=== PATIENT | male | born 1995 | race Caucasian/White ===

== ENCOUNTER 2018-01-06 08:22 | Emergency (ER) | payer OTHER ==
[2018-01-06] MEDS: IBUPROFEN 600 MG TAB PO (09:19)
== END 2018-01-06 09:52 | disposition home or self-care (01) ==
LOC: M ED 08:22
DX: S83.91XA Sprain of unspecified site of right knee, initial encounter (principal); X50.1XXA Overexertion from prolonged static or awkward postures, initial encounter; Y92.39 Other specified sports and athletic area as the place of occurrence of the external cause; Y93.9 Activity, unspecified; Y99.9 Unspecified external cause status
CPT/HCPCS: 73564

== ENCOUNTER 2018-07-04 11:59 | Emergency (ER) | payer OTHER ==
[~2018-07-04] VITALS: Ht 177.8 cm; Wt 100.0 kg
[~2018-07-04 11:59] MED LIST: IBUP-1022 PO
[2018-07-04] MEDS ORDERED: HYDR-3713 PO (12:06)
[2018-07-04] MEDS ORDERED: ASPI-255 PO (12:06)
--- NOTE | 2018-07-04 13:33 | REP ---
Clinical: Hematochezia . Comparison: None . Technique: PA and lateral. Findings: The mediastinum and cardiac silhouette are normal. The lung hernández are clear and without acute consolidation, effusion, or pneumothorax. The skeletal structures are intact and normal. Impression: 1. No acute cardiopulmonary process. Electronically Signed by Humberto Haddad MD 07/04/2018 01:25 P
[2018-07-04] MEDS ORDERED: dexameTHASONE 4 MG/ML 1ML VIAL (J1100) PO ONE (15:15)
[2018-07-04 15:40] VITALS: BP 128/64
== END 2018-07-04 15:48 | disposition home or self-care (01) ==
LOC: M ED 11:59
DX: J95.89 Other postprocedural complications and disorders of respiratory system, not elsewhere classified (principal); Z79.82 Long term (current) use of aspirin
CPT/HCPCS: 71046; 99283; J1100